=== PATIENT | female | born 1980 | race Two or more races ===

== ENCOUNTER 2018-02-23 02:07 | Emergency (ER) | payer SELFPAY, OTHER ==
[2018-02-23] MEDS: LIDOCAINE 4% CR TOP (04:35)
[2018-02-23] MEDS: HYDROCODONE/APAP (5/325) TAB PO (05:17)
[2018-02-23] MEDS: CLINDAMYCIN 300 MG CAP PO (05:18)
== END 2018-02-23 05:22 | disposition home or self-care (01) ==
LOC: FTE 02:07
DX: L03.011 Cellulitis of right finger (principal)
CPT/HCPCS: 10061; 99284-25